=== PATIENT | female | born 1965 | race Caucasian/White ===

== ENCOUNTER → 2020-02-04 | Outpatient (CLI) | payer OTHER | END | disposition home or self-care (01) | LOC: LAB 14:37 | PROVIDERS: ATTEND Internal Medicine Pulmonary Disease | DX: Z20.828 Contact with and (suspected) exposure to other viral communicable diseases (principal) | CPT/HCPCS: C9803; U0003 ==

== ENCOUNTER → 2021-07-14 | Outpatient (CLI) | payer OTHER ==
--- NOTE | 2021-07-15 09:03 | KCIC ---
EXAM: MRI RIGHT KNEE DATE: 07/14/2021 3:20 PM CLINICAL INDICATION: Reason: RIGHT KNEE PAIN / Spl. Instructions: / History: Rt knee pain laterally with swelling since a fall last Feb. COMPARISON: None. TECHNIQUE: Multiplanar, multisequence MRI of the RIGHT knee was performed without contrast. FINDINGS: Small right knee joint effusion. Moderate Braswell's cyst with edema tracking caudally along the leg sug gesting partial rupture/leakage. PCL is intact. Mild diminutive appearance of the central fibers of the ACL possibly from old injury a lthough appears grossly intact. MCL, fibular collateral ligament, biceps femoris and IT band are intact. Popliteus is intact, normal in signal and morphology. Extensor mechanism is intact. Neutral patellar tracking. Medial meniscus: Trace free edge blunting body segment medial meniscus. 4 mm extrusion body segment. Lateral meniscus: Intact Chondral effacement lateral patellar facet and trochlea including apex. Subchondral edema and cystic change. Large cystic changes seen within the tibia subjacent to the tibial spine, measuring approxima tely 4 cm in craniocaudal dimension. Full-thickness cartilage defect is seen at the medial aspect of the lateral femoral condyle and chondral fissuring lateral tibial plateau. Chondral thinning medial c ompartment. Tricompartmental osteophytes. No acute fracture or osteonecrosis. IMPRESSION: 1. Tricompartmental osteoarthritis with large subchondral cystic change subjacent to the tibial spin e measuring up to 4 cm in craniocaudal dimension. Smaller subchondral cysts are seen at the patella. 2. Shallow free edge radial tear body segment medial meniscus with approximately 4 mm extrusion. 3. Small right knee joint effusion. 4. Small Braswell's cyst with edema tracking caudally possibly from recent partial rupture. Electronically signed by: Sarbjit Bal MD (07/15/2021 9:01 AM) [id number]
== END ==
LOC: KCIC MRI 15:05
PROVIDERS: ATTEND Physician Assistant
DX: M17.11 Unilateral primary osteoarthritis, right knee (principal); M25.461 Effusion, right knee; M71.21 Synovial cyst of popliteal space [Baker], right knee; W01.0XXA Fall on same level from slipping, tripping and stumbling without subsequent striking against object, initial encounter
CPT/HCPCS: 73721